=== PATIENT | male | born 1970 | race Caucasian/White ===

== ENCOUNTER 2018-06-03 08:23 | Day surgery (SDC) | payer MEDICAID ==
[2018-05-27 15:51] LABS: BASOPHILS # (AUTO) 0.1 X10'3 (0-0.2); BASOPHILS % (AUTO) 0.9 % (0-1); EOSINOPHILS % (AUTO) 0.5 % (0-6); MEAN CORPUSCULAR HEMOGLOBIN 31.5 PG (27.0-31.0); MEAN CORPUSCULAR VOLUME 92.7 FL (78-98); MEAN PLATELET VOLUME 8.4 FL (7.4-10.4); MONOCYTES # (AUTO) 0.5 X10'3 (0-0.9); NEUTROPHILS # (AUTO) 3.9 X10'3 (1.8-7.7); NEUTROPHILS % (AUTO) 60.6 % (42-75); PRE OP HEMATOCRIT 46.3 % (42.0-52.0); PRE OP HEMOGLOBIN 15.7 g/dL (14.0-17.9); PRE OP PLATELET COUNT 205 X10'3 (140-440); RED BLOOD COUNT 4.99 X10'6 (4.70-6.10); RED CELL DISTRIBUTION WIDTH 14.5 % (11.5-14.5)
[2018-05-27 16:06] LABS: ALBUMIN 3.7 G/DL (3.4-5.0); ALBUMIN/GLOBULIN RATIO 0.9 (1.1-1.5); ALKALINE PHOSPHATASE 59 IU/L (46-116); BLOOD UREA NITROGEN 13 MG/DL (7-18); BUN/CREATININE RATIO 11.9 (5.4-32.0); CALCIUM 8.6 MG/DL (8.5-10.1); CHLORIDE 105 MMOL/L (99-107); CREATININE 1.09 MG/DL (0.60-1.10); PRE OP ALT 32 U/L (30-65); PRE OP ANION GAP 9 (8-16); PRE OP AST 18 U/L (10-37); PRE OP BILIRUB, TOTAL 0.4 MG/DL (0.0-1.0); PRE OP GLUCOSE 85 MG/DL (70-104); PRE OP POTASSIUM 3.6 MMOL/L (3.4-5.1); PRE OP SODIUM 141 MMOL/L (135-145); TOTAL CARBON DIOXIDE 27.3 MMOL/L (24-32); TOTAL PROTEIN 7.6 G/DL (6.4-8.2); eGFR 72 ML/MIN
[~2018-06-03] VITALS: Ht 182.9 cm; Wt 104.9 kg
[~2018-06-03 08:23] MED LIST: IBUP200C5 PO; LIDOcaine 0.5% (5mg/ml) 50ml vial ONE; albuterol 2.5 MG/3 ML nebule NEB ONE; ceFAZolin 2gm in dextrose, iso 100 ML IV ONE; famotidine 20mg tablet PO ONE; fentaNYL/PF 50MCG/1 ML 2ML syringe IV PRN; hydrALAZINE 20mg/ml inj. IV PRN; labetalol 20mg/4ml (5mg/ml) syringe IV PRN; morphine 4 MG/ML inj SYRINge IV PRN; ondansetron/PF 4mg/2ml inj IV PRN; ringers solution, lacted 1,000 ML IV SCH
[2018-06-03] MEDS ORDERED: BUPIVAcaine/PF 2.5mg/ml (0.25%) 10ml vial ONE (10:41)
[2018-06-03 10:46] VITALS: BP 119/81
[2018-06-03 10:47] VITALS: BP 119/81
[2018-06-03] MEDS ORDERED: fentaNYL/PF 50MCG/1 ML 2ML syringe ONE (11:11)
[2018-06-03] MEDS ORDERED: midazolam 2 mg/2 ml injection ONE (11:11)
[2018-06-03] MEDS ORDERED: LIDOcaine 1%/PF 5ML 10 MG/ML VIAL ONE (11:21)
[2018-06-03] MEDS ORDERED: propofol inj 20 ML IV ONE (11:21)
[2018-06-03 11:38] VITALS: BP 159/89
--- NOTE | 2018-06-03 11:38 | NUR ---
Received from OR via [facility], accompanied by Anesthesiologist DR VÁSQUEZ and report given by Anesthesiologist. PT AWAKE, DENIES PAIN, LEFT HAND/WRIST W/DRSG CDI, FINGERS PWD, INFANT BABYSITTER 1-2 SECONDS. Addendum: 06/03/18 at 1151 by Adrienne Cantu RN Amended: Links added.
[2018-06-03 11:48] VITALS: BP 126/73
[2018-06-03 11:58] VITALS: BP 138/85
[2018-06-03 12:08] VITALS: BP 140/86
--- NOTE | 2018-06-03 12:18 | NUR ---
PT D/CD TO HOME IN STABLE CONDITION W/HIS , INSTRUCTIONS GONE OVER AND GIVEN TO PT, PT AND PTS VERBALIZED UNDERSTANDING. Addendum: 06/03/18 at 1235 by Adrienne Cantu RN Amended: Links added.
== END 2018-06-03 12:18 | disposition home or self-care (01) ==
LOC: PAS 08:23
PROVIDERS: ATTEND Orthopaedic Surgery Hand Surgery
DX: M65.332 Trigger finger, left middle finger (principal); D21.12 Benign neoplasm of connective and other soft tissue of left upper limb, including shoulder; F17.210 Nicotine dependence, cigarettes, uncomplicated; Z72.89 Other problems related to lifestyle; Z88.6 Allergy status to analgesic agent
CPT/HCPCS: 26055; 26111; 36415; 71046; 80053; 82948; 85025; 93005; A6222; A6449; J0690; J2001; J2250; J2704; J3010; J3490; J7120

== ENCOUNTER 2022-07-08 23:38 | Emergency (ER) | payer MEDICAID ==
[~2022-07-08] VITALS: Ht 182.9 cm; Wt 98.0 kg
[~2022-07-08 23:38] MED LIST changes: -LIDOcaine 0.5% (5mg/ml) 50ml vial ONE; -albuterol 2.5 MG/3 ML nebule NEB ONE; -ceFAZolin 2gm in dextrose, iso 100 ML IV ONE; -famotidine 20mg tablet PO ONE; -fentaNYL/PF 50MCG/1 ML 2ML syringe IV PRN; -hydrALAZINE 20mg/ml inj. IV PRN; -labetalol 20mg/4ml (5mg/ml) syringe IV PRN; -morphine 4 MG/ML inj SYRINge IV PRN; -ondansetron/PF 4mg/2ml inj IV PRN; -ringers solution, lacted 1,000 ML IV SCH
[2022-07-08 23:41] VITALS: BP 124/85
[2022-07-09] MEDS ORDERED: acetaminophen 325mg tablet PO ONE (01:45)
[2022-07-09] MEDS ORDERED: ibuprofen tablet 400 MG TABLET PO ONE (01:45)
== END 2022-07-09 02:07 | disposition home or self-care (01) ==
LOC: ER 23:38
DX: J02.9 Acute pharyngitis, unspecified (principal); Z20.822 Contact with and (suspected) exposure to COVID-19; Z88.5 Allergy status to narcotic agent; Z79.899 Other long term (current) drug therapy
CPT/HCPCS: 87081; 87811; 87880; 99283

== ENCOUNTER 2024-11-08 11:14 | Emergency (ER) | payer MEDICAID ==
[~2024-11-08] VITALS: Ht 182.9 cm; Wt 103.0 kg
[2024-11-08 12:07] VITALS: BP 116/82; PULSE 99; RESP 18; O2SAT 97
--- NOTE | 2024-11-08 13:11 | Physician Documentation ---
History of Present Illness ~ Chief Complaint: Hip pain Stated Complaint: HIP PAIN Time Seen by MD: 12:35 Primary Medical Doctor: NONE HPI 54-year-old male presents to the ED with a complaint of right hip pain after stepping off of an embankment three ED weeks ago.. States he is able to ambulate but has pain with range of motion. Denies any numbness or tingling or head injuries. States he has not been evaluated prior to today. Medication Reconciliation Allergies: Coded Allergies: codeine (Verified Allergy, Mild, ITCHING, 11/08/24) Scheduled Ibuprofen (Advil), 800 MG PO BID, (Reported) Past Medical History Past Medical History: *MUSCULOSKELETAL* Past Surgical History: no surgical history Alcohol Use: Occasionally Drug Use: none Lives with: Family Lives In: Home Occupation: employed Review of Systems All Other Systems at this time: Reviewed and Negative ROS As stated above in the HPI, otherwise all systems are reviewed and negative. Physical Exam Vital Signs: Temperature: 98.2, Source: Oral, Heart Rate: 99, Respiratory Rate: 18, BP: 116/82, Pulse Oximetry: 97, Weight: 103.000 Physical Exam General: Alert, no apparent distress. Extremities: pain wit h ROM, no internal or external rotation , no deformity Neurologic: Oriented x4. Psychiatric: Normal mood and affect. Skin: Normal color, warm and dry. No edema, no ecchymosis. Progress Results/Orders Results/Orders Vital Signs 11/08/24 12:07 Temp 98.2 Pulse 99 Resp 18 B/P (MAP) 116/82 Pulse Ox 97 Medical Decision Making Findings I do not appreciate any signs of acute fracture on patient's right hip x-ray. There may be some internal derangement however this can only be establishing outpatient setting via MRI. He will advise the patient of this.. He is otherwise stable and able to ambulate therefore meets criteria for outpatient therapy Departure Disposition: 01 HOME / SELF CARE / HOMELESS Impression: Primary Impression: Hip pain Condition: Stable Discharge Instructions: Contusion (Bruise) Additional Instructions: If you continue to have pain and limitations in your right hip I recommend going to an urgent care or your primary care and obtain an MRI for further evaluation Referrals: NO PRIMARY CARE PROVIDER (PCP) Signature Scribe Signature: y Attestation: Scribed for Steven Matson Aquaculture Director by Steven Gamble NP . 11/08/24 13:08 STEVEN MATSON NP Nov 08, 2024 13:10
--- NOTE | 2024-11-08 13:17 | RADIOLOGY REPORT ---
CLINICAL INDICATION: HIP PAIN TECHNIQUE: 2 radiographic views of the pelvis and 2 views of the right hip were obtained. Comparison: None FINDINGS/IMPRESSION: There is no evidence of acute fracture or dislocation. The visualized joint space is well maintained. The alignment is anatomical. There is no radiopaque foreign body.
[2024-11-08 13:22] VITALS: TEMP 98.2
== END 2024-11-08 13:23 | disposition home or self-care (01) ==
LOC: ER 11:15
DX: M25.551 Pain in right hip (principal); Z88.5 Allergy status to narcotic agent; Z72.89 Other problems related to lifestyle; Z79.899 Other long term (current) drug therapy
CPT/HCPCS: 73502; 99283